=== PATIENT | male | born 1960 | race Caucasian/White ===

== ENCOUNTER → 2016-04-09 | Day surgery (SDC) | payer MEDICARE, OTHER ==
[~2016-04-09] MED LIST: BUPIVACAINE HCL PF 0.5% 30 ML VIAL ONE; BUPIVACAINE HCL PF 0.75% 30 ML VIAL ONE; BUPIVACAINE/EPINEPHRINE 0.5% PF 30 ML VIAL ONE; CELE40TA PO; KETOROLAC TROMETHAMINE 30 MG/ML (IVP) VIAL IV PUSH ONE; LACTATED RINGER'S 1000 ML INJ 1,000 ML ONE; LIDOCAINE 1.5%/EPINEPHrine 1:200,000 PF SOLN 30 ML AMP ONE; MEPERIDINE HCL 25 MG/ML VIAL ONE; MEPERIDINE HCL 50 MG/ML VIAL ONE; MIDAZOLAM HCL 2 MG/2 ML VIAL ONE; MULT-65 PO; ONDANSETRON HCL 4 MG/2 ML VIAL IV PUSH ONE; PROPOFOL 200 MG/20 ML AMP IV ONE; XANA2TAB2 PO; ceFAZolin INJ 1,000 MG VIAL ONE; oxyCODONE/ACETAMINOPHEN 5 MG/325 MG TAB ONE
--- NOTE | 2016-04-09 22:11 | MP ---
cc: KATHERINE TORRES MD DATE OF SURGERY 04/09/16 PREOPERATIVE DIAGNOSIS 1. Right ankle syndesmosis injury with significant widening of the mortise 2. Right leg proximal fibular fracture. POSTOPERATIVE DIAGNOSIS 1. Right ankle syndesmosis injury with significant widening of the mortise 2. Right leg proximal fibular fracture. SURGEON Inessa Torres MD EPIC PRELUDE ANALYST JOSIE Page The surgical procedure was assisted by my Advanced Registered Nurse Practitioner. My SLIPMAN presence was necessary throughout this case for the manipulation and positioning of the surgical extremity. My SLIPMAN was assisting me throughout the duration of this procedure. The skill set of an Advance Registered Nurse Practitioner was medically necessary to complete this procedure. During the surgical case, the phlebotomy services technician was working at the back table and the Advance Registered Nurse Practitioner was directly assisting me. PROCEDURE 1. Right ankle open reduction internal fixation of the syndesmosis injury with Synthes screws. 2. Right proximal fibular fracture nonoperative treatment ESTIMATED BLOOD LOSS Minimal ANESTHESIA General anesthesia. TOURNIQUET TIME Zero minutes PROCEDURE IN DETAIL The patient was brought back to operative theater. General anesthesia was administered. Right lower extremity was prepped and draped in usual sterile fashion. We gave infiltration of 0.5% Marcaine with epinephrine to the lateral aspect of the ankle. We reduced the widening of the mortise. We made incision along the lateral aspect of the ankle, dissected down to the fibula and then overdrilled a 3.5 screw overdrilling the fibula and using the standard drill bit onto the tibia. This allowed us to obtain compression through the syndesmosis. We placed a 3.5 Synthes fully threaded cortical screw into position. The ankle was held in neutral position. The screw had excellent purchase. We did this angling approximately 30 degrees anteriorly. We then secured another screw which was a 4.0 screw a little more distal through the actual mid aspect of the syndesmosis. This one we did not over drill and this had excellent purchase. We took fluoroscopic imaging showing that the mortise was anatomic in all three views. The wounds were irrigated and closed with 2-0 Vicryl followed by 3-0 nylon. These were just small poke hole incisions and did not have significant bleeding. Note that the patient had been off of his Lovenox 100 mg b.i.d. for the last two doses. The leg was dressed, placed into a posterior U splint bringing the foot into supination and dorsiflexion. Postoperative plan is non-weightbearing. This will be for approximately 3 months. We will initially mobilize and then start range of motion exercises. He will require removal of the screws in staged planned fashion. This will be around 3 months from this original surgery. MD MORRIS Miranda/ /12:53 PM /10:00 PM
== END | disposition home or self-care (01) ==
LOC: ESDC 09:58
PROVIDERS: ATTEND Orthopaedic Surgery
DX: S93.431A Sprain of tibiofibular ligament of right ankle, initial encounter (principal); S82.401A Unspecified fracture of shaft of right fibula, initial encounter for closed fracture
CPT/HCPCS: 01480; 27829; 73610; 76000; C1713; J0690; J1885; J2175; J2250; J2405; J3010; J7120

== ENCOUNTER → 2016-07-09 | Day surgery (SDC) | payer MEDICARE, OTHER ==
[~2016-07-09] MED LIST changes: -BUPIVACAINE HCL PF 0.5% 30 ML VIAL ONE; -BUPIVACAINE HCL PF 0.75% 30 ML VIAL ONE; -LIDOCAINE 1.5%/EPINEPHrine 1:200,000 PF SOLN 30 ML AMP ONE; -MEPERIDINE HCL 50 MG/ML VIAL ONE; -ONDANSETRON HCL 4 MG/2 ML VIAL IV PUSH ONE; -oxyCODONE/ACETAMINOPHEN 5 MG/325 MG TAB ONE
--- NOTE | 2016-07-09 23:28 | MP ---
cc: KATHERINE TORRES DATE OF SURGERY 07/09/16 PREOPERATIVE DIAGNOSIS Right ankle retained hardware, status post open reduction internal fixation of syndesmosis injury. POSTOPERATIVE DIAGNOSIS Right ankle retained hardware, status post open reduction internal fixation of syndesmosis injury. SURGEON Inessa Torres MD CONTROL SYSTEMS TECHNICIAN JOSIE Page The surgical procedure was assisted by my Advanced Registered Nurse Practitioner. My OPERATIONS ARCHITECT presence was necessary throughout this case for the manipulation and positioning of the surgical extremity. My OPERATIONS ARCHITECT was assisting me throughout the duration of this procedure. The skill set of an Advance Registered Nurse Practitioner was medically necessary to complete this procedure. During the surgical case, the survey technician was working at the back table and the Advance Registered Nurse Practitioner was directly assisting me. PROCEDURE IN DETAIL Right ankle planned, staged removal of implant deep, syndesmotic screws x2. ESTIMATED BLOOD LOSS Minimal ANESTHESIA General anesthesia TOURNIQUET TIME Zero minutes JUSTIFICATION FOR PROCEDURE The patient is a 56-year-old man who had an ORIF of his syndesmosis approximately 3 months ago. He is being brought back for planned staged removal of the hardware. PROCEDURE IN DETAIL The patient was brought back to operative theater. General anesthesia was administered. He had received intravenous Ancef. The right lower extremity was prepped and draped in usual sterile fashion. We gave injection of 0.25% Marcaine with epinephrine around the previous incision sites. We made two incisions in the skin and then incised down through deep fascia down to periosteum. We elevated the periosteum over the two screws along with deep fascia over the two screws. We then removed both screws. Each of these screws had excellent purchase within the bone. There was no signs of infection noted. The patient had good range of motion of the ankle. We took final fluoroscopic images including an AP and mortise view. Then we also did a stress view of the mortise. There was some slight tilting of the talus indicating some slight instability around the deltoid ligament. However, we did not find any specific instability about the syndesmosis with dorsiflexion and external rotation and we did this dynamically under a live fluoroscopic imaging. Note that there was diffuse osteopenia which is consistent with the patient being non-weightbearing over the last 3 months. We irrigated the wounds. Hemostasis was achieved. We closed incisions with 2-0 Vicryl followed by 3-0 nylon and then dressing was applied. POSTOPERATIVE PLAN We will start the patient to advance weightbearing as tolerated. He understands how to do this slowly. He will use the fracture boot initially for weightbearing and then slowly wean out of the boot. MD MORRIS Miranda/ /1:23 PM /11:19 PM
== END | disposition home or self-care (01) ==
LOC: ESDC 11:05
PROVIDERS: ATTEND Orthopaedic Surgery
DX: T84.84XA Pain due to internal orthopedic prosthetic devices, implants and grafts, initial encounter (principal)
CPT/HCPCS: 01480; 20680; 73600; 76000; J0690; J1885; J2175; J2250; J3010; J7120